=== PATIENT | male | born 1965 ===

== ENCOUNTER 2018-07-04 20:30 | Emergency (ER) | payer BC ==
[~2018-07-04] VITALS: Ht 182.9 cm; Wt 104.3 kg
[2018-07-04 20:51] VITALS: BP 142/97
[2018-07-04] MEDS ORDERED: ALBUTEROL FS 2.5 MG/3 ML VIAL.NEB NEB ONE (21:30)
[2018-07-04] MEDS ORDERED: IPRATROPIUM NEB FS 0.5 MG/2.5 ML AMPUL.NEB NEB ONE (21:30)
[2018-07-04] MEDS ORDERED: predniSONE 20 MG TABLET PO ONE (21:30)
[2018-07-04] MEDS ORDERED: IBUPROFEN 600 MG TABLET PO ONE ×2 (21:30→21:44)
[2018-07-04] MEDS ORDERED: ALBUTEROL FS 2.5 MG/3 ML VIAL.NEB ONE (21:33)
[2018-07-04] MEDS ORDERED: IPRATROPIUM NEB FS 0.5 MG/2.5 ML AMPUL.NEB ONE (21:33)
[2018-07-04] MEDS ORDERED: predniSONE 20 MG TABLET ONE (21:44)
== END 2018-07-04 22:08 | disposition home or self-care (01) ==
LOC: ER 20:33 → EDSEX 20:33 → ER 22:08
DX: J20.9 Acute bronchitis, unspecified (principal); J45.909 Unspecified asthma, uncomplicated; Z98.890 Other specified postprocedural states; Z88.1 Allergy status to other antibiotic agents
CPT/HCPCS: 71045; 94640; 99283; J7512

== ENCOUNTER 2018-11-26 05:02 | Inpatient (IN) | payer BC ==
[~2018-11-26] VITALS: Ht 180.3 cm; Wt 104.3 kg
[2018-11-26] MEDS ORDERED: TOPI50TA24 PO (05:32)
[2018-11-26] MEDS ORDERED: LEVE1000 PO (05:32)
--- NOTE | 2018-11-26 05:33 | NUR ---
David major in [facility] - 11/26/18 at 0610 by DANY SURENDRA BUTLER) [phone]
[2018-11-26] MEDS ORDERED: MORPHINE SULFATE INJ 2 MG/ML DISP.SYRIN IV ONE (06:00)
[2018-11-26] MEDS ORDERED: IV NS 0.9% 1,000 ML BAG IV ONE (06:00)
[2018-11-26] MEDS ORDERED: ONDANSETRON HCL/PF 4 MG/2 ML VIAL IVP ONE (06:00)
--- NOTE | 2018-11-26 06:10 | NUR ---
PAGED ORTHO. JATINDER PENDLETON FISH TRAPPER
[2018-11-26] MEDS ORDERED: ONDANSETRON HCL/PF 4 MG/2 ML VIAL ONE (06:16)
[2018-11-26] MEDS ORDERED: MORPHINE SULFATE INJ 4 MG/ML DISP.SYRIN ONE (06:17)
[2018-11-26 06:18] LABS: BASOPHILS % (AUTO) 0.2 % (0.0-2.0); EOSINOPHILS % (AUTO) 1.5 % (0.0-6.0); HEMATOCRIT 40 % (39-51); LYMPHOCYTES # (AUTO) 1.8 /CMM (0.8-4.8); LYMPHOCYTES % (AUTO) 30.5 % (20.0-44.0); MEAN CORPUSCULAR HGB CONC 35 g/dl (31.0-36.0); MEAN CORPUSCULAR VOLUME 94 fL (80-96); MONOCYTES # (AUTO) 0.5 /CMM (0.1-1.30); MONOCYTES % (AUTO) 7.6 % (2.0-12.0); NEUTROPHILS # (AUTO) 3.6 /CMM (1.8-8.9); NEUTROPHILS % (AUTO) 60.2 % (43.0-81.0); PLATELET COUNT (AUTO) 161 /CMM (150-450); RED BLOOD CELL COUNT(AUTO) 4.21 MIL/uL (4.5-6.0)
--- NOTE | 2018-11-26 06:21 | NUR ---
DR. DE LEON ON THE PHONE WITH JATINDER LOO
--- NOTE | 2018-11-26 06:23 | NUR ---
A 20G PIV STABLISHED ON THE RFA. BLOOD DRAWN AND SENT TO THE LAB. PT MEDICATED ORDERED.
[2018-11-26 06:30] LABS: CALCIUM, SERUM 8.1 mg/dL (8.5-10.1); CREATININE 0.9 mg/dL (0.6-1.3); POTASSIUM 3.2 mmol/L (3.5-5.1)
[2018-11-26] MEDS ORDERED: AMLO5TAB9 PO (06:37)
[2018-11-26] MEDS ORDERED: ROSU20TA2 PO (06:37)
[2018-11-26] MEDS ORDERED: NEVI400T5 PO (06:37)
--- NOTE | 2018-11-26 06:53 | NUR ---
SPOKE TO RESTORATION ECOLOGIST FROM [facility]. PT IS AUTHORIZED TO STAY.
--- NOTE | 2018-11-26 07:25 | NUR ---
CALLED FOR MS BED
[2018-11-26] MEDS ORDERED: HYDROCODONE/APAP 5/325MG 1 EACH TABLET PO PRN (07:30)
[2018-11-26] MEDS ORDERED: MAG HYDROX/AL HYDROX/SIMETH 30 ML UDC PO PRN ×2 (07:30→07:45)
[2018-11-26] MEDS ORDERED: ONDANSETRON HCL/PF 4 MG/2 ML VIAL IVP PRN ×2 (07:30→07:45)
[2018-11-26] MEDS ORDERED: ACETAMINOPHEN 325 MG TABLET PO PRN ×2 (07:30→07:45)
[2018-11-26] MEDS ORDERED: Z GUARD REMEDY 2 OZ OINT TP PRN ×2 (07:30→07:45)
[2018-11-26] MEDS ORDERED: MORPHINE SULFATE INJ 2 MG/ML DISP.SYRIN IV PRN (07:30)
[2018-11-26] MEDS ORDERED: MAGNESIUM HYDROXIDE 30 ML UDC PO PRN ×2 (07:30→07:45)
--- NOTE | 2018-11-26 08:21 | NUR ---
PT AAOX4, SEEN BY
[2018-11-26] MEDS ORDERED: AMLODIPINE BESYLATE 5 MG TABLET PO SCH (09:00)
--- NOTE | 2018-11-26 09:05 | NUR ---
RECEIVED ONE TIME VERBAL ORDER TO ADMINSITER ATIVAN 1MG IVP.
[2018-11-26] MEDS ORDERED: LORAZEPAM INJ 2 MG/ML VIAL ONE (09:13)
[2018-11-26] MEDS ORDERED: LORAZEPAM INJ 2 MG/ML VIAL IV ONE (09:30)
--- NOTE | 2018-11-26 10:24 | NUR ---
REPORT GIVEN TO KIKO CAMEJO.
[2018-11-26] MEDS ORDERED: POTASSIUM CL. PREMIX PERIPHER. 50 ML IV SCH (10:30)
[2018-11-26] MEDS ORDERED: LORAZEPAM INJ 2 MG/ML VIAL IV PRN ×2 (10:30→10:45)
[2018-11-26] MEDS ORDERED: HYDROMORPHONE INJ 2 MG/ML DISP.SYRIN IV PRN (10:30)
--- NOTE | 2018-11-26 10:30 | NUR ---
MS RN NOTES RECEIVED REPORT FROM DEEPA.
--- NOTE | 2018-11-26 10:45 | NUR ---
MS RN ADMITTING NOTES ADMITTED A 53 Y/O, M TO UNIT VIA GURNEY ACCOMPANIED BY E.R NURSE. A/O X 4. ABLE TO MAKE NEEDS KNOWN. PATIENT ORIENTED TO UNIT, ROOM AND STAFF. ON RA, BREATHING EVEN AND UNLABORED. V/S TAKEN AND RECORDED. SKIN IS INTACT. ABDOMEN SOFT, NON-DISTENDED WITH POSITIVE BOWEL SOUNDS ON FOUR QUADRANTS. LUNGS CLEAR ON AUSCULTATION. IV ACCESS ON RFA #20. INTACT AND PATENT. SAFETY MEASURES IN PLACE, BED IN LOW LOCKED POSITION WITH SIDE RAILS UP X 2. CALL LIGHT WITHIN EASY REACH. WILL CONTINUE TO MONITOR.
[2018-11-26 11:00] VITALS: BP 117/79
[2018-11-26] MEDS: HYDROMORPHONE INJ 2 MG/ML DISP.SYRIN IV PRN ×2 (11:04→15:49)
[2018-11-26] MEDS: POTASSIUM CL. PREMIX PERIPHER. 50 ML IV SCH ×4 (11:23→16:25)
[2018-11-26] MEDS: AMLODIPINE BESYLATE 5 MG TABLET PO SCH (11:30)
--- NOTE | 2018-11-26 13:00 | NUR ---
MS RN NOTES PATIENT LEFT FOR CT ON LEFT HIP VIA GURNEY WITH HOSPITAL STAFF. PATIENT IS ON STABLE CONDITION.
[2018-11-26] MEDS: HYDROCODONE/APAP 5/325MG 1 EACH TABLET PO PRN ×2 (13:47→19:24)
[2018-11-26 16:00] VITALS: BP 170/90
[2018-11-26] MEDS ORDERED: POTASSIUM CHLORIDE 20 MEQ TAB.PRT.SR PO SCH (18:00)
[2018-11-26] MEDS: IV NS 0.9% 1,000 ML IV PRN ×2 (18:11→18:19)
[2018-11-26 18:31] LABS: MAGNESIUM 2.3 mg/dL (1.8-2.4)
--- NOTE | 2018-11-26 18:50 | NUR ---
MS RN CLOSING NOTES PATIENT IN BED RESTING COMFORTABLY IN MODERATE HIGH BACK REST. A/O X 4. ON RA, TOLERATING WELL. IV FLUIDS ON LEFT AC#22 WITH NS @ 100 ML/HR. PATENT AND INTACT. SAFETY MEASURES IN PLACE, BED IN LOW LOCKED POSITION WITH SIDE RAILS UP X 2. CALL LIGHT WITHIN REACH. WILL ENDORSED TO WHEEL WORKER NURSE FOR CRISTIAN.
--- NOTE | 2018-11-26 19:39 | NUR ---
MS RN NOTE RECEIVED PT IN STABLE CONDITION, A/O X3, CURRENTLY IN BED WATCHING TV. NO SIGNS OF SOB OR DISTRESS, PAIN IS TOLERABLE AT THIS TIME, NO C/O N/V. PT AWARE OF NPO STATUS AT 0000 FOR SX IN AM. IV IN L AC #[address] WITH IVF INFUSING. ALL CURRENT NEEDS ATTENDED TO. BED LOW, LOCKED, UPPER RAILS UP, AND CALL LIGHT WITHIN REACH. WILL CONT. TO MONITOR.
[2018-11-26 19:58] LABS: THYROID STIMULATING HORMONE 1.049 uIU/mL (0.358-3.74)
[2018-11-26 20:00] VITALS: BP 137/80
[2018-11-26 20:32] LABS: APPEARANCE,URINE Clear (CLEAR); BILIRUBIN,URINE Negative (NEGATIVE); BLOOD, URINE Negative Ery/uL (NEGATIVE); COLOR,URINE Yellow (YELLOW); KETONES,URINE Negative (NEGATIVE); LEUKOCYTE ESTERASE ,URINE Negative (NEGATIVE); NITRITE, URINE Negative (NEGATIVE); PH,URINE 6.5 (5.0-8.0); PROTEIN,URINE Negative (NEGATIVE); UGLUCOSE Negative (NEGATIVE); UROBILINOGEN,URINE 0.2 EU/dL (0.2)
[2018-11-27] MEDS: HYDROMORPHONE INJ 2 MG/ML DISP.SYRIN IV PRN ×3 (01:03→20:02)
[2018-11-27] MEDS: IV NS 0.9% 1,000 ML IV PRN (04:03)
--- NOTE | 2018-11-27 06:39 | NUR ---
MS RN NOTE PT IN STABLE CONDITION, A/O X3, CURRENTLY IN BED WATCHING TV. NO SIGNS OF SOB OR DISTRESS, PAIN IS TOLERABLE AT THIS TIME, NO C/O N/V. PT AWARE OF NPO STATUS AT 0000 FOR SX IN AM. ALL CONSENTS SIGNED FOR SX. IV IN L AC #[address] WITH IVF INFUSING. ALL CURRENT NEEDS ATTENDED TO. BED LOW, LOCKED, UPPER RAILS UP, AND CALL LIGHT WITHIN REACH. WILL CONT. TO MONITOR AND ENDORSE TO NEXT SHIFT FOR CRISTIAN.
[2018-11-27] MEDS ORDERED: HYDROMORPHONE INJ 2 MG/ML DISP.SYRIN ONE ×2 (07:39→10:25)
[2018-11-27] MEDS ORDERED: MIDAZOLAM HCL 2 MG/2ML VIAL ONE (07:40)
[2018-11-27] MEDS ORDERED: VANCOMYCIN 1 GM VIAL ONE (07:40)
[2018-11-27] MEDS ORDERED: ANESTHESIA TRAY IN PYXIS 1 EA TRAY MC ONE (07:49)
[2018-11-27] MEDS ORDERED: BACITRACIN 50000 UNITS/VIAL ONE (07:49)
[2018-11-27] MEDS ORDERED: BUPIVACAINE 0.5 % PF 150 MG/30 ML VIAL ONE (07:49)
--- NOTE | 2018-11-27 08:00 | NUR ---
MS RN OPENING NOTES Patient off unit and taken to OR at 0716 in stable condition per night coordinatornight manager. Will continue to monitor.
[2018-11-27] MEDS ORDERED: FAMOTIDINE/PF INJ 20 MG/2 ML VIAL IV ONE (08:04)
[2018-11-27] MEDS ORDERED: ALBUTEROL FS 2.5 MG/3 ML VIAL.NEB ONE (10:05)
[2018-11-27 10:07] LABS: *% CD 4 POS. LYMPH 24.7 % (30.8-58.5); *% CD 8 POS. LYMPH 57.9 % (12.0-35.5); *CD4/CD8 RATIO 0.43 (0.92-3.72)
[2018-11-27] MEDS ORDERED: LABETALOL HCL IV 100MG VIAL ONE (10:44)
[2018-11-27] MEDS ORDERED: IV LR 1000 ML 1,000 ML IV PRN (11:00)
--- NOTE | 2018-11-27 11:33 | NUR ---
MS RN NOTES Patient returned from OR at this time. A/O x 4. VS stable with no acute distress. Breathing even and unlabored on 4LPM via NC, SPO2 97%. Patient stated pain level of 8/10 on LEFT UPPER LEG. Will intervene as ordered. Mcbride Cath in place and patent with clear yellow output noted. 18g PIV on LEFT WRIST clean, dry, intact and flushing well. 22g PIV on LAC with LR running at 75ml/hr. Safety precautions in place. Bed locked and set to lowest position with side rails x 2 up. All needs rendered at this time. Will continue to monitor.
[2018-11-27] MEDS: HYDROCODONE/APAP 5/325MG 1 EACH TABLET PO PRN ×3 (12:35→22:22)
[2018-11-27 12:36] VITALS: BP 152/100
[2018-11-27] MEDS: AMLODIPINE BESYLATE 5 MG TABLET PO SCH (12:36)
[2018-11-27] MEDS: ATORVASTATIN 40 MG TABLET PO SCH (12:36)
[2018-11-27 12:55] LABS: CREATININE 0.8 mg/dL (0.6-1.3); POTASSIUM 3.6 mmol/L (3.5-5.1)
[2018-11-27 13:05] LABS: BASOPHILS % (AUTO) 0.1 % (0.0-2.0); EOSINOPHILS % (AUTO) 0.1 % (0.0-6.0); HEMATOCRIT 38 % (39-51); HEMOGLOBIN 12.8 g/dL (13.5-17.5); LYMPHOCYTES # (AUTO) 0.7 /CMM (0.8-4.8); LYMPHOCYTES % (AUTO) 6.1 % (20.0-44.0); MEAN CORPUSCULAR HGB CONC 34 g/dl (31.0-36.0); MEAN CORPUSCULAR VOLUME 96 fL (80-96); MONOCYTES # (AUTO) 0.3 /CMM (0.1-1.30); MONOCYTES % (AUTO) 2.2 % (2.0-12.0); NEUTROPHILS # (AUTO) 10.6 /CMM (1.8-8.9); NEUTROPHILS % (AUTO) 91.5 % (43.0-81.0); PLATELET COUNT (AUTO) 147 /CMM (150-450); RED BLOOD CELL COUNT(AUTO) 3.99 MIL/uL (4.5-6.0); WHITE BLOOD COUNT (AUTO) 11.6 K/uL (4.3-11.0)
[2018-11-27 16:00] VITALS: BP 160/99
--- NOTE | 2018-11-27 18:43 | NUR ---
MS RN CLOSING NOTES Patient resting in bed. A/O x 4. VS stable with no acute distress. Breathing even and unlabored on room air. Patient stated tolerable pain level of 6/10 on LEFT THIGH. Will endorse to oncoming shift. Mcbride Cath in place and patent with clear yellow output noted. 18g PIV on LEFT WRIST clean, dry, intact and flushing well. 22g PIV on LAC with LR running at 75ml/hr. Safety precautions in place. Bed locked and set to lowest position with side rails x 2 up. All needs rendered at this time. Call light within reach. Will endorse plan of care to oncoming shift.
--- NOTE | 2018-11-27 19:25 | NUR ---
RN OPEN NOTES RECEIVED PATIENT RESTING IN BED, EASILY AROUSABLE. A/OX4. NO SIGNS OF DISTRESS OR DISCOMFORT. BREATHING EVEN AND UNLABORED. STATES PAIN IS TOLERABLE AT THIS TIME. IV ACCESS IN L WRIST AND LAC WITH LR INFUSING, PATENT AND INTACT, NO SIGNS OF REDNESS OR INFILTRATION. HAS F/C INTACT, DRAINING CLEAR YELLOW FLUID. BED IN LOW LOCKED POSITION WITH SIDE RAILS X2. CALL LIGHT WITHIN REACH. WILL CONTINUE TO MONITOR.
[2018-11-27 20:00] VITALS: BP 143/80
[2018-11-27] MEDS: VANCOMYCIN 1 GM in IV D5W 250ml IV SCH (20:01)
[2018-11-28] MEDS: HYDROMORPHONE INJ 2 MG/ML DISP.SYRIN IV PRN ×2 (04:52→12:41)
[2018-11-28] MEDS: HYDROCODONE/APAP 5/325MG 1 EACH TABLET PO PRN ×2 (06:45→11:12)
--- NOTE | 2018-11-28 07:25 | NUR ---
RN CLOSING NOTES PATIENT AWAKE IN BED. A/OX4. NO SIGNS OF DISTRESS OR DISCOMFORT. BREATHING EVEN AND UNLABORED. STATES PAIN IS 6/10 AND TOLERABLE AT THIS TIME. IV ACCESS IN L WRIST AND LAC WITH LR INFUSING, PATENT AND INTACT, NO SIGNS OF REDNESS OR INFILTRATION. HAS F/C INTACT, DRAINING CLEAR YELLOW FLUID. ALL NEEDS MET. NO SIGNIFICANT CHANGES THROUGH THE NIGHT. BED IN LOW LOCKED POSITION WITH SIDE RAILS X2. CALL LIGHT WITHIN REACH. ENDORSED TO AM SHIFT FOR CRISTIAN.
--- NOTE | 2018-11-28 07:25 | NUR ---
MS RN OPENING NOTE RECEIVED PATIENT IN BED, RESTING COMFORTABLY. PATIENT BREATHING IS EVEN AND UNLABORED. PATIENT IN NO ACUTE DISTRESS. NO SOB NOTED. PATIENT STATES PAIN AT 6/10 AND IS TOLERABLE. PATIENT SEAMAN CATHETER IS IN PLACE AND DRAINING TO GRAVITY, CLEAR YELLOW FLUID. PATIENT BED IS LOCKED AND IN LOWEST POSITION. CALL LIGHT WITHIN REACH. WILL CONTINUE TO MONITOR.
[2018-11-28 08:00] VITALS: BP 124/78
[2018-11-28] MEDS: VANCOMYCIN 1 GM in IV D5W 250ml IV SCH (08:42)
[2018-11-28] MEDS: ATORVASTATIN 40 MG TABLET PO SCH (08:42)
[2018-11-28 08:43] VITALS: BP 124/78
[2018-11-28] MEDS: AMLODIPINE BESYLATE 5 MG TABLET PO SCH (08:43)
[2018-11-28] MEDS ORDERED: ENOXAPARIN SODIUM 40 MG/0.4 ML DISP.SYRIN SQ SCH (09:00)
--- NOTE | 2018-11-28 09:00 | NUR ---
MS RN NOTE REMOVED SEAMAN CATHETER PER POST OP DAY 1 ORDER. PATIENT TOLERATED WELL. NO REDNESS OR SWELLING AT SITE OF REMOVAL. WILL CONTINUE TO MONITOR
--- NOTE | 2018-11-28 11:15 | NUR ---
MS RN NOTE PATIENT WAS USING CRUTCHES WITH PHYSICAL THERAPY FOR POST OP DAY 1 FROM SURGERY OF LEFT HIP WHICH WAS ON 11/27/18 . PHYSICAL THERAPIST MADISON MORELAND WAS PRESENT WITH PATIENT THROUGHOUT ACTIVITY. PATIENT STATED HE WAS GOING DOWN STAIRS WITH PHYSICAL THERAPIST MADISON. PATIENT HAD CRUTCHES AND BELT AVAILABLE. PATIENT STATED " I WAS ABOUT TO TAKE ONE STEP, AND GOT NERVOUS AND FLUSTERED AND PUSHED BACKWARDS ABRUPTLY WITH FEET AND LANDED ON MY BUTTOCKS. BUT MADISON WAS THERE TO EASE MY FALL. I GOT AHEAD OF MYSELF AND GOT SCARED." PER MADISON MORELAND PT, PATIENT FELL ON BUTTOCKS ON ONE STAIR. I ASSESSED PATIENT SKIN AND EXTREMITIES FOR ANY BRUISING OR NOTABLE SKIN DAMAGE. NO NEW SKIN BREAKDOWN NOTED. NO BRUISING NOTED. PATIENT HAD XRAY OF THE LEFT HIP. X RAY SHOWED NO FRACTURES OR DISLOCATIONS. PATIENT IN NO ACUTE DISTRESS. NO SOB NOTED. PATIENT BACK IN BED WITH ASSISTANCE. MD AWARE. BRUSHER OPERATOR AWARE. CHARGE NURSE AWARE. WILL CONTINUE TO MONITOR. Addendum: 11/28/18 at 1850 by CHELE MONTGOMERY RN PATIENT FALL Addendum: 11/28/18 at 1947 by CHELE MONTGOMERY RN PATIENT BP AFTER FALL WAS 133/71, HR 89, O2 SAT ON RA 98% SPO2.
--- NOTE | 2018-11-28 17:00 | NUR ---
MS EMBROIDERY SPECIALIST NOTE PATIENT MEDICALLY STABLE. PATIENT IN NO ACUTE DISTRESS. NO SOB NOTED. PATIENT BREATHING IS EVEN AND UNLABORED. PATIENT VITAL SIGNS WNL. DC INSTRUCTIONS PROVIDED. PATIENT VERBALIZED UNDERSTANDING. PATIENT ID BAND REMOVED. IVS REMOVED. PATIENT SIGNED BELONGINGS LIST AND HAS ALL BELONGINGS WITH HIM. PATIENT REFUSED TO HAVE SKIN ASSESSED. PATIENT STATES " I DONT NEED YOU TO DO ANY OF THAT SKIN ASSESSMENT STUFF". PATIENT CONTINUED TO REFUSED. PATIENT KEPT CLEAN, DRY, AND COMFORTABLE. ALL NURSING NEEDS MET. PATIENT TO GO BACK HOME WITH FRIEND WHO HE ALSO LIVES WITH. PATIENT TO GO BY HIS FRIENDS CAR. PATIENT GOT NEW CRUTCHES WITH HIM. PATIENT STATED "I DONT WANT MY OLD CRUTCHES". MD MADE AWARE OF PATIENT DISCHARGE.
--- NOTE | 2018-11-28 19:44 | NUR ---
PATIENT BP AFTER FALL WAS 133/71, HR 89, O2 SAT ON RA 98% SPO2. Addendum: 11/28/18 at 1946 by CHELE MONTGOMERY RN AT 1115
[2018-11-29 04:06] LABS: *BASOS 0 % (Not Estab.); *EOS 0 % (Not Estab.); *HCT 34.6 % (37.5-51.0); *HGB 11.4 g/dL (13.0-17.7); *IMMATURE GRANULOCYTES 0 % (Not Estab.); *LYMPHOCYTES 22 % (Not Estab.); *LYMPHS, ABSOLUTE 2.2 x10E3/uL (0.7-3.1); *MCH 31.9 pg (26.6-33.0); *MCHC 32.9 g/dL (31.5-35.7); *MCV 97 fL (79-97); *MONOCYTES 6 % (Not Estab.); *MONOS, ABSOLUTE 0.6 x10E3/uL (0.1-0.9); *NEUTROPHILS 72 % (Not Estab.); *NEUTROPHILS, ABSOLUTE 7.3 x10E3/uL (1.4-7.0); *PLT 159 x10E3/uL (150-450); *RBC 3.57 x10E6/uL (4.14-5.80); *RDW 13.8 % (12.3-15.4)
[2018-11-29 12:06] LABS: *% CD 4 POS. LYMPH 28.2 % (30.8-58.5); *% CD 8 POS. LYMPH 53.4 % (12.0-35.5); *ABSOLUTE CD 4 HELPER 620 /uL (359-1519); *ABSOLUTE CD 8 SUPPRESSOR 1175 /uL (109-897); *CD4/CD8 RATIO 0.53 (0.92-3.72)
[2018-12-01 19:06] LABS: *HIV-1 RNA BY PCR <20 copies/mL (.)
== END 2018-11-28 17:05 | disposition home or self-care (01) | DRG 482 ==
LOC: ER 05:04 → MED 10:40
PROVIDERS: ADMIT Internal Medicine; ATTEND Internal Medicine
PROC: 0QSC34Z Reposition Left Lower Femur with Internal Fixation Device, Percutaneous Approach (ICD-10-PCS; principal; 2018-11-26)
DX: S72.002A Fracture of unspecified part of neck of left femur, initial encounter for closed fracture (principal); Y92.009 Unspecified place in unspecified non-institutional (private) residence as the place of occurrence of the external cause; E78.5 Hyperlipidemia, unspecified; F41.9 Anxiety disorder, unspecified; E87.6 Hypokalemia; J45.909 Unspecified asthma, uncomplicated; I10 Essential (primary) hypertension; W10.9XXA Fall (on) (from) unspecified stairs and steps, initial encounter; Z98.890 Other specified postprocedural states; Z79.899 Other long term (current) drug therapy; Z88.0 Allergy status to penicillin
CPT/HCPCS: 36415; 71045-TC; 72170-TC; 73020; 73502; 73552; 73564-TC; 73700-TC; 80048-TC; 80061-TC; 81000-TC; 83735-TC; 84439-TC; 84443-TC; 85025-TC; 85730-TC; 86360; 86850-TC; 86921-TC; 87081-TC; 87536; 93307-TC; 97116-TC; 97530-TC; A6209; G0378; J1100; J1170; J1650; J2060; J2250; J2270; J2405; J2704; J3370; J3480; J3490; J7030; J7050; J7060; J7120

== ENCOUNTER 2018-12-27 17:40 | Emergency (ER) | payer BC ==
[~2018-12-27] VITALS: Ht 180.3 cm; Wt 104.3 kg
[~2018-12-27 17:40] MED LIST: AMLO5TAB9 PO; NEVI400T5 PO; ROSU20TA2 PO
[2018-12-27] MEDS ORDERED: ACETAMINOPHEN ES 500 MG TABLET ONE (18:55)
[2018-12-27] MEDS ORDERED: ACETAMINOPHEN 325 MG TABLET PO ONE (19:00)
--- NOTE | 2018-12-27 19:00 | NUR ---
pt rec'd to er c/o ;left hip pain 10/11 sp sx on hip one month ago was [facility] today at 1700 [address] himself here has pain left hip. also stated he has for 2 weeks flu like sym. no fever
--- NOTE | 2018-12-27 19:02 | NUR ---
given tyenol 1000 mg po now
[2018-12-27] MEDS ORDERED: IPRATROPIUM NEB FS 0.5 MG/2.5 ML AMPUL.NEB NEB ONE (20:00)
[2018-12-27] MEDS ORDERED: TRAMADOL HCL 50 MG TABLET PO ONE (20:00)
[2018-12-27] MEDS ORDERED: ALBUTEROL FS 2.5 MG/3 ML VIAL.NEB NEB ONE (20:00)
[2018-12-27] MEDS ORDERED: IPRATROPIUM NEB FS 0.5 MG/2.5 ML AMPUL.NEB ONE (20:04)
[2018-12-27] MEDS ORDERED: ALBUTEROL FS 2.5 MG/3 ML VIAL.NEB ONE (20:04)
[2018-12-27] MEDS ORDERED: TRAMADOL HCL 50 MG TABLET ONE (20:06)
--- NOTE | 2018-12-27 20:09 | NUR ---
RT AT BEDSIDE FOR BREATHING TX
[2018-12-27 20:32] VITALS: BP 133/90
== END 2018-12-27 20:38 | disposition home or self-care (01) ==
LOC: ER 17:42
DX: M25.552 Pain in left hip (principal); J20.9 Acute bronchitis, unspecified; I10 Essential (primary) hypertension; J45.909 Unspecified asthma, uncomplicated; Z98.890 Other specified postprocedural states; Z88.1 Allergy status to other antibiotic agents; Z79.899 Other long term (current) drug therapy; V49.49XA Driver injured in collision with other motor vehicles in traffic accident, initial encounter; Y93.89 Activity, other specified; Y92.488 Other paved roadways as the place of occurrence of the external cause; Y99.8 Other external cause status
CPT/HCPCS: 71045-TC; 73502; 73552